=== PATIENT | male | born 1985 | race Two or more races ===

== ENCOUNTER 2019-05-23 13:38 | Emergency (ER) | payer OTHER ==
[2019-05-23 13:48] VITALS: BP 127/71
[2019-05-23] MEDS ORDERED: HYDROcodone/APAP 5/325 TABLET ONE (13:56)
[2019-05-23] MEDS ORDERED: HYDROcodone/APAP 5/325 TABLET PO ONE (14:00)
== END 2019-05-23 16:24 | disposition home or self-care (01) ==
LOC: ED 16:18
DX: S52.044A Nondisplaced fracture of coronoid process of right ulna, initial encounter for closed fracture (principal); W18.30XA Fall on same level, unspecified, initial encounter; Y93.89 Activity, other specified; Y92.89 Other specified places as the place of occurrence of the external cause; Y99.8 Other external cause status
CPT/HCPCS: 29105; 99284